=== PATIENT | female | born 1955 | race Caucasian/White ===

== ENCOUNTER 2016-09-06 20:29 | Emergency (ER) | payer MEDICARE, OTHER ==
[2016-09-06] MEDS ORDERED: EPINEPHrine 10 ML SYRINGE (0.1 MG/ML) ONE (20:30)
[2016-09-06 20:45] LABS: Glucose,Whole Blood 322 mg/dL (75-99)
--- NOTE | 2016-09-06 20:51 | ED ---
General Adult HPI - General Stated complaint: unresponsive Time Seen by Provider: 09/06/16 20:29 Source: EMS Mode of arrival: EMS Limitations: altered mental status, physical limitation - History of Present Illness Initial comments: Patient is an unresponsive 60-year-old female presenting to the emergency department in cardiac arrest. Patient was transferred from [facility]. Down time was at 1910 and bystander CPR were started at 1912. EMS provided 7 epinephrine and did shock once. Patient had long transport time. Patient arrives unresponsive. Patient reportedly had a large black bowel movement prior to becoming unresponsive. Blood sugars have also reportedly been low each morning. There was report of abdomen with increased distention since arrest. - Related Data Allergies Allergy/AdvReac Type Severity Reaction Status Date / Time No Known Allergies Allergy Verified 03/24/14 16:32 Review of Systems ROS Statement: Those systems with pertinent positive or pertinent negative responses have been documented in the HPI. ROS Other: All systems not noted in ROS Statement are negative. Limitations: ROS unobtainable due to patients medical condition Past Medical History Past Medical History: Coronary Artery Disease (CAD), COPD, CVA/TIA, Diabetes Mellitus, Eye Disorder, Hyperlipidemia, Hypertension, Memory Impairment, Osteoarthritis (OA), Pneumonia, Seizure Disorder, Sleep Apnea/CPAP/BIPAP, Vascular Disorder History of Any Multi-Drug Resistant Organisms: None Reported Past Surgical History: Bladder Surgery, Section, Cholecystectomy, Heart Catheterization With Stent Additional Past Surgical History / Comment(s): cataract surgery bilateral Past Anesthesia/Blood Transfusion Reactions: No Reported Reaction Date of Last Stent Placement:: 2006 Past Psychological History: Anxiety Smoking Status: Former smoker Past Alcohol Use History: Occasional Past Drug Use History: None Reported - Past Family History Mother Family Medical History: Cancer, Diabetes Mellitus Father Family Medical History: CVA/TIA, Diabetes Mellitus, Myocardial Infarction (IA) General Exam Limitations: altered mental status, physical limitation General appearance: obtunded Head exam: Present: atraumatic Eye exam: Present: other (Pupils fixed and dilated) ENT exam: Present: other (Intubated) Neck exam: Present: normal inspection Respiratory exam: Present: other (No spontaneous breath sounds. Equal breath sounds with bagging insufflation) Cardiovascular Exam: Present: other (No heart sounds. No pulses.) GI/Abdominal exam: Present: distended, other (Abdomen is extremely distended and firm. There is some ecchymosis laterally.) Extremities exam: Present: normal inspection Neurological exam: Present: other (Unresponsive) Psychiatric exam: Present: other (Unresponsive) Skin exam: Absent: rash Course Vital Signs 09/06/16 20:29 Temperature 97.6 F Pulse Rate 0 L Respiratory 0 L Rate Blood Pressure 0/0 O2 Sat by Pulse 0 L Oximetry - Reevaluation(s) Reevaluation #1: 09/06/16 20:50 Patient arrived at 2026. At 2033 patient continues to have no pulse. No heart sounds. No spots to pain. Pupils are fixed and dilated. No spontaneous breath sounds. Monitor with PEA. Time of is 2033. Medical Decision Making - Medical Decision Making Family was notified by staff. Unable to get a hold of Dr. Schmidt. Case was discussed with er medical technician Araceli and the body will go to the [facility] [place]. - Lab Data Lab Results 09/06/16 Range/Units 20:33 POC Glucose (mg/dL) 322 H (75-99) mg/dL POC Glu Waste Recycler ID [id number] [id number] Disposition Clinical Impression: Cardiopulmonary arrest Disposition: Referrals: None,Stated [Primary Care Provider] - 1-2 days Preliminary Cause of : Cardiopulmonary arrest
[2016-09-06 20:54] VITALS: BP 0/0; PULSE 0; RESP 0; TEMP 97.6
== END 2016-09-07 00:05 | disposition expired ==
LOC: EC 20:29
DX: I46.9 Cardiac arrest, cause unspecified (principal); I25.10 Atherosclerotic heart disease of native coronary artery without angina pectoris; G47.30 Sleep apnea, unspecified; Z95.5 Presence of coronary angioplasty implant and graft; Z99.89 Dependence on other enabling machines and devices; Z87.891 Personal history of nicotine dependence
CPT/HCPCS: 36415; 99285; 92950; J0171